=== PATIENT | female | born 1945 | race Caucasian/White ===

== ENCOUNTER → 2020-07-02 | Outpatient (CLI) | payer MEDICARE ==
[~2020-07-02] MED LIST: ANUSOL-HC25 MG PR; BIOTIN300 MCG PO; CALCIUM PO; CLARITIN10 MG PO; ESTRACE1 MG PO; FLAGYL500 MG PO; FLAX SEED OIL1000 MG PO; LEVAQUIN500 MG PO; MULTI-VITAMIN1 EACH PO; PROAIR HFA8.5 GM INH; PROTONIX40 MG PO; VITAMIN D31000 UNI1 PO; XELJANZ 11 MG PO
== END ==
LOC: US 09:25
DX: R94.5 Abnormal results of liver function studies (principal); K76.0 Fatty (change of) liver, not elsewhere classified; K80.20 Calculus of gallbladder without cholecystitis without obstruction; N28.89 Other specified disorders of kidney and ureter
CPT/HCPCS: 76700

== ENCOUNTER → 2020-11-27 | Outpatient (CLI) | payer MEDICARE | LOC: RAD 17:03 | DX: R32 Unspecified urinary incontinence (principal); R06.02 Shortness of breath; J98.09 Other diseases of bronchus, not elsewhere classified | CPT/HCPCS: 71046; 81001 ==

== ENCOUNTER → 2020-12-12 | Outpatient (CLI) | payer MEDICARE | LOC: HEART 5 09:15 | DX: R06.02 Shortness of breath (principal) | CPT/HCPCS: 94060; 94729 ==

== ENCOUNTER → 2020-12-17 | Outpatient (CLI) | payer MEDICARE | LOC: US 08:03 → NM 10:00 | DX: R06.02 Shortness of breath (principal); I27.20 Pulmonary hypertension, unspecified; I08.1 Rheumatic disorders of both mitral and tricuspid valves | CPT/HCPCS: ECHO; 93306 ==

== ENCOUNTER → 2020-12-20 | Outpatient (CLI) | payer MEDICARE | LOC: US 09:30 → NM 10:00 | DX: R10.84 Generalized abdominal pain (principal); R11.0 Nausea; G89.29 Other chronic pain; R68.89 Other general symptoms and signs; R53.83 Other fatigue; R06.02 Shortness of breath; K80.20 Calculus of gallbladder without cholecystitis without obstruction | CPT/HCPCS: 76705; 78452; 93017; A9502; J2785 ==

== ENCOUNTER → 2021-02-05 | Outpatient (CLI) | payer MEDICARE | LOC: EXRD 10:33 | DX: M54.50 Low back pain, unspecified (principal); M47.816 Spondylosis without myelopathy or radiculopathy, lumbar region | CPT/HCPCS: 72100 ==

== ENCOUNTER 2021-08-22 16:45 | Emergency (ER) | payer MEDICARE | END 2021-08-22 20:55 | disposition home or self-care (01) | LOC: ER1 16:45 | DX: S93.401A Sprain of unspecified ligament of right ankle, initial encounter (principal); S70.02XA Contusion of left hip, initial encounter; S40.012A Contusion of left shoulder, initial encounter; M06.9 Rheumatoid arthritis, unspecified; W01.0XXA Fall on same level from slipping, tripping and stumbling without subsequent striking against object, initial encounter | CPT/HCPCS: 73030; 73502; 73562; 73590; 73610; 99283 ==

== ENCOUNTER → 2021-10-07 | Outpatient (CLI) | payer MEDICARE | LOC: EROP 14:14 | DX: U07.1 COVID-19 (principal); Z23 Encounter for immunization | CPT/HCPCS: M0222; Q0222 ==

== ENCOUNTER → 2021-11-12 | Outpatient (CLI) | payer MEDICARE | LOC: EMI 10-28 10:15 | DX: R27.0 Ataxia, unspecified (principal); H74.8X1 Other specified disorders of right middle ear and mastoid | CPT/HCPCS: 70551 ==